=== PATIENT | female | born 1950 | race Two or more races ===

== ENCOUNTER 2016-11-03 09:33 | Outpatient (CLI) | payer MEDICARE, MEDICAID ==
[2016-11-03] MEDS ORDERED: REGADENOSON 0.4 MG/5 ML DISP.SYRIN IVP ONE (10:00)
== END 2016-11-03 23:59 | disposition home or self-care (01) ==
LOC: NM 09:33
PROVIDERS: ATTEND Internal Medicine Interventional Cardiology
DX: R07.9 Chest pain, unspecified (principal)
CPT/HCPCS: 78452; A9502; J2785